=== PATIENT | female | born 1955 | race Caucasian/White ===

== ENCOUNTER 2020-01-23 16:42 | Emergency (ER) | payer MEDICAID ==
[~2020-01-23] VITALS: Ht 170.2 cm; Wt 86.4 kg
[~2020-01-23 16:42] MED LIST: ALPR-624 PO; METH-603 PO; OXYC-658 PO; PHEN-716 PO; PHEN-786 PO; PSEU120T84 PO; ZOLP-183 PO
[2020-01-23] MEDS ORDERED: ketorolac tromethamine 15mg/ml inj. IV ONE (16:55)
[2020-01-23] MEDS ORDERED: LORazepam 2 mg/ml vial IV ONE (16:55)
[2020-01-23 17:15] LABS: BASOPHILS % (AUTO) 0.4 % (0-1); EOSINOPHILS % (AUTO) 0.2 % (0-6); HEMATOCRIT 41.9 % (35.0-45.0); HEMOGLOBIN 14.1 g/dl (12.0-16.0); LYMPHOCYTES # (AUTO) 1.7 X10'3 (1.1-4.8); MEAN CORPUSCULAR HEMOGLOBIN 28.6 PG (27.0-31.0); MEAN CORPUSCULAR HGB CONC 33.6 g/dL (33.0-36.5); MEAN CORPUSCULAR VOLUME 85.4 FL (78-98); MEAN PLATELET VOLUME 7.4 FL (7.4-10.4); MONOCYTES # (AUTO) 0.4 X10'3 (0-0.9); NEUTROPHILS % (AUTO) 76.4 % (42-75); PLATELET COUNT 229 X10'3 (140-440); RED CELL DISTRIBUTION WIDTH 13.9 % (11.5-14.5); WHITE BLOOD COUNT 9.1 X10'3 (4.5-11.0)
[2020-01-23 17:31] LABS: ALANINE AMINOTRANSFERASE 23 U/L (12-78); ALBUMIN 4.3 G/DL (3.4-5.0); ALBUMIN/GLOBULIN RATIO 1.2 (1.1-1.5); ALKALINE PHOSPHATASE 68 IU/L (46-116); ANION GAP 8 (8-16); ASPARTATE AMINO TRANSFERASE 18 U/L (10-37); BILIRUBIN,TOTAL 0.6 MG/DL (0.1-1.0); BLOOD UREA NITROGEN 14 MG/DL (7-18); BUN/CREATININE RATIO 14.3 (6.6-38.0); CALCIUM 9.3 MG/DL (8.5-10.1); CHLORIDE 104 MMOL/L (99-107); CREATININE 0.98 MG/DL (0.40-0.90); GLUCOSE 111 MG/DL (70-104); POTASSIUM 4.1 MMOL/L (3.5-5.1); SODIUM 140 MMOL/L (135-145); TOTAL CARBON DIOXIDE 28.2 MMOL/L (24-32); TOTAL PROTEIN 7.8 G/DL (6.4-8.2); eGFR 57 ML/MIN
[2020-01-23 17:51] LABS: CLARITY,URINE CLEAR (Clear); COLOR,URINE YELLOW (Yellow); GLUCOSE, URINE NEGATIVE (Neg); KETONES,URINE TRACE mg/dl (Neg); LEUKOCYTE ESTERASE ,URINE NEGATIVE (Neg); NITRITES, URINE NEGATIVE (Neg); OCCULT BLOOD,URINE TRACE-INTACT (Neg); PH,URINE 5.5 (4.8-8.0); PROTEIN,URINE TRACE mg/dl (Neg); UROBILINOGEN,URINE 0.2 E.U/dL (0.2-1.0)
[2020-01-23 17:55] LABS: UA COLLECTION TYPE NON-SPECIFIED
[2020-01-23 17:56] LABS: BACTERIA,URINE NONE SEEN /HPF (Neg); MUCUS STRANDS FEW /LPF (Neg); RBC,URINE NONE SEEN /HPF (0-2); SQUAMOUS EPITHELIAL CELL,UR MODERATE /LPF (FEW); WBC,URINE 0-4 /HPF (0-4)
[2020-01-23] MEDS ORDERED: normal saline 1000ml 1,000 ML IV ONE (18:55)
[2020-01-23] MEDS ORDERED: LORazepam 1 MG tablet PO ONE (18:55)
[2020-01-23 19:52] VITALS: BP 150/84
== END 2020-01-23 19:54 | disposition home or self-care (01) ==
LOC: ER 16:43
DX: M54.31 Sciatica, right side (principal); M21.371 Foot drop, right foot; R20.2 Paresthesia of skin; M19.90 Unspecified osteoarthritis, unspecified site; G89.29 Other chronic pain; F41.9 Anxiety disorder, unspecified; Z87.440 Personal history of urinary (tract) infections; Z90.89 Acquired absence of other organs; Z90.710 Acquired absence of both cervix and uterus; Z98.890 Other specified postprocedural states; Z79.899 Other long term (current) drug therapy
CPT/HCPCS: 36415; 80053; 81001; 85025; 96374; 96375; 99285; J1885; J2060; J7030

== ENCOUNTER 2024-12-29 09:54 | Emergency (ER) | payer BC, MEDICAID ==
[~2024-12-29] VITALS: Ht 170.2 cm; Wt 86.5 kg
[2024-12-29 09:57] VITALS: BP 141/94; PULSE 97; RESP 18; TEMP 97.8; O2SAT 96
[2024-12-29] MEDS ORDERED: ONDA-243 PO (10:47)
[2024-12-29] MEDS ORDERED: DICY20TA17 PO (10:47)
[2024-12-29] MEDS: ondansetron 4mg rapidly disintigrating tab PO ONE (11:15)
[2024-12-29] MEDS: dicyclomine 10 MG capsule PO ONE (11:15)
== END 2024-12-29 11:20 | disposition home or self-care (01) ==
LOC: ER 09:54
DX: K29.70 Gastritis, unspecified, without bleeding (principal); T50.905A Adverse effect of unspecified drugs, medicaments and biological substances, initial encounter; M19.90 Unspecified osteoarthritis, unspecified site; F41.9 Anxiety disorder, unspecified; Z90.49 Acquired absence of other specified parts of digestive tract; Z90.710 Acquired absence of both cervix and uterus
CPT/HCPCS: 99283

== ENCOUNTER 2025-03-05 08:48 | Emergency (ER) | payer BC, MEDICAID ==
[~2025-03-05] VITALS: Ht 170.2 cm; Wt 87.6 kg
[~2025-03-05 08:48] MED LIST changes: +DICY20TA17 PO; +ONDA-243 PO
[2025-03-05 08:55] VITALS: BP 146/80; PULSE 77; RESP 18; O2SAT 96
--- NOTE | 2025-03-05 09:29 | Physician Documentation ---
History of Present Illness ~ Chief Complaint: Finger pain Stated Complaint: FINGER PAIN Time Seen by MD: 09:01 Primary Medical Doctor: [facility] HPI This 69-year-old female presents with pain and localized swelling to lateral aspect of her left 3rd finger, patient describes the pain as burning though manageable with mnom-bhz-hlbpjxb pain medications. Tetanus within 5 years: No Medication Reconciliation Allergies: Coded Allergies: No Known Allergies (Unverified , 12/29/24) Scheduled Alprazolam* (Xanax*), 2 MG PO HS, (Reported) Dicyclomine HCl (Dicyclomine HCl), 1 TAB PO Q12H Methadone Hcl* (Dolophine*), 20 MG PO BID, (Reported) Phenazopyridine Hcl (Pyridium tablet), 200 MG PO TID, (Reported) Phenazopyridine Hcl (Pyridium tablet), 2 TAB PO TID Pseudoephedrine Hcl (Pseudoephedrine), 1 TABLET PO BID Zolpidem Tartrate (Ambien), 10 MG PO HS, (Reported) Scheduled PRN ONDANSETRON ODT 4mg tablet (Ondansetron Odt), 1 TAB PO Q6H PRN PRN for nausea/vomiting Oxycodone Hcl IR* (Oxycodone IR*), 1 TAB PO Q4H PRN for breakthrough pain, (Reported) Phenazopyridine HCl (Pyridium), 1 TAB PO Q8H PRN for pain Past Medical History Past Medical History: UTI, Arthritis, Chronic Pain, Anxiety Past Surgical History: appendectomy, , hysterectomy, orthopedic surgeries, tonsillectomy, other Other Past Surgical History: ovarian cystectomy Alcohol Use: None Drug Use: none Lives with: Family Lives In: Home Review of Systems ROS Finger pain as stated above in the HPI, otherwise all systems are reviewed and negative. Physical Exam Vital Signs: Temperature: 97.9, Source: Temporal, Heart Rate: 77, Respiratory Rate: 18, BP: 146/80, Pulse Oximetry: 96, Weight: 87.600 Oxygen Flow Rate: 0 Physical Exam VITALS: Reviewed and as above. GENERAL: Alert, nontoxic appearing, no apparent distress. RESPIRATORY: No increased work of breathing, no respiratory distress, speaking in full clear sentences CV: Brisk capillary refill to left 3rd finger MUSCULOSKELETAL: Range of motion intact in bilateral hands SKIN: Two flesh-colored papules to lateral aspect of left 3rd finger, minimally tender to palpation Progress Results/Orders Results/Orders Vital Signs 03/05/25 03/05/25 08:55 09:34 Temp 97.9 97.9 Pulse 77 Resp 18 B/P (MAP) 146/80 Pulse Ox 96 O2 Flow Rate 0 EKG/XRAY/CT/US/VASC/MRI Bone/Soft Tissue X-Ray (Ext.) : Additional Comment DI FINGER(S), INDICATION: Finger Pain TECHNICAL DATA: Frontal view of the left hand and lateral and oblique views of the left thumb were obtained. COMPARISON: None FINDINGS: 2nd through 5th distal interphalangeal joint space narrowing with central erosions resulting in Gull wing figure aeration suggestive of erosive osteoarthritis. No acute fracture. No dislocation. There is narrowing of the 1st carpometacarpal joint space. Soft tissue swelling in the 3rd digit. IMPRESSION: 1. No acute fracture or dislocation. 2. Features of erosive osteoarthritis. 3. Soft tissue swelling of the 3rd digit. Electronically Signed by:VICENTA CORBIN MD Date & Time: 03/05/25944 Dictated by: VICENTA CORBIN MD Dictation date and time: 03/05/25944 I have reviewed and agree with the radiology report. I have reviewed and interpreted the imaging as: No Fracture or dislocation Medical Decision Making Findings This 69-year-old female presented with pain and two areas of localized swelling to the lateral aspect of left 3rd finger, physical exam most consistent with herpetic yun. It is reassuring finger is neurovascularly intact and range of motion intact, x-ray of the finger ordered by nursing staff prior to my exam an x-ray did not demonstrate evidence of fracture or dislocation. Patient is otherwise well-appearing with no other symptoms or concerns and physical exam was otherwise benign, patient is appropriate for outpatient follow up. Patient provided home care instructions and return to care precautions which he verbalized understanding. Finger Diff Dx:Considerations: Include: Abrasion, Cellulitis, Fracture, Hematoma, Neurovascular injury, Subungual hematoma Departure Time of Disposition: 09:29 Disposition: 01 HOME / SELF CARE / HOMELESS Impression: Primary Impression: Finger pain Qualified Codes: M79.645 - Pain in left finger(s) Condition: Improved Discharge Instructions: Herpetic Yun Additional Instructions: This appears to be a condition called herpetic yun which is a viral infection of the skin of the finger, is commonly cause by a herpes virus, this is a self-resolving condition that will take 2-4 weeks to go away, you may use ibuprofen and or Tylenol for pain as directed by helx-fqh-pbsyaxa packaging. Please follow up with your primary care provider in the next few days. Please return to the emergency department for any new or worsening concerning symptoms. Referrals: NO PRIMARY CARE PROVIDER (PCP) Education Educated: Patient Educated regarding: diagnosis, treatment, prognosis, need for follow up Signature Scribe Signature: No scribe Attestation: The note accurately reflects work and decisions made by me.KASEY Cote 03/05/25 20:15 KIM LOWERY Mar 05, 2025 09:29
[2025-03-05 09:34] VITALS: TEMP 97.9
--- NOTE | 2025-03-05 09:47 | RADIOLOGY REPORT ---
DI FINGER(S), INDICATION: Finger Pain TECHNICAL DATA: Frontal view of the left hand and lateral and oblique views of the left thumb were ob tained. COMPARISON: None FINDINGS: 2nd through 5th distal interphalangeal joint space narrowing with central erosions resulting in Gull wing figure aeration suggestive of erosive osteoarthritis. No acute fracture. No dislocation. There is narrowing of the 1st carpometacarpal joint space. Soft tissue swelling in the 3rd digit. IMPRESSION: 1. No acute fracture or dislocation. 2. Features of erosive osteoarthritis. 3. Soft tissue swelling of the 3rd digit.
== END 2025-03-05 09:36 | disposition home or self-care (01) ==
LOC: ER 08:48
DX: M79.645 Pain in left finger(s) (principal); R22.9 Localized swelling, mass and lump, unspecified; F41.9 Anxiety disorder, unspecified; M19.90 Unspecified osteoarthritis, unspecified site; Z90.49 Acquired absence of other specified parts of digestive tract; Z90.710 Acquired absence of both cervix and uterus
CPT/HCPCS: 73140; 99283

== ENCOUNTER 2025-04-02 11:15 | Emergency (ER) | payer BC, MEDICAID ==
[~2025-04-02] VITALS: Ht 170.2 cm; Wt 83.2 kg
--- NOTE | 2025-04-02 11:28 | ELECTROCARDIOGRAPH REPORT ---
[facility], [place] Test Date: 2025-04-02 Test Time: 11:27:00 Pat Name: FELIPE RUSH Department: EMERGENCY ROOM Room: Gender: F Nurse Educator: LALITA : 1955 Requested By: ANNA NAVARRO Order Number: [id number] Reading MD: Measurements Intervals [place] Rate: 95 P: 51 RI: 163 QRS: -12 QRSD: 80 T: 51 QT: 369 QTc: 464 Interpretive Statements Sinus rhythm Ventricular premature complex Abnormal R-wave progression, early transition Please click the below link to view image of tracing.
[2025-04-02 11:44] LABS: MEAN PLATELET VOLUME 7.9 FL (7.4-10.4); RED CELL DISTRIBUTION WIDTH 14.2 % (11.5-14.5)
[2025-04-02 11:59] LABS: APTT 26 SECONDS (22-32); INR 1.1 INR
[2025-04-02 12:10] LABS: CREATININE 0.72 MG/DL (0.40-0.90); TOTAL CARBON DIOXIDE 26.7 MMOL/L (24-32); eCRCL 73 ML/MIN; eGFR 81 ML/MIN
[2025-04-02 12:22] LABS: PRO BRAIN NATRIURETIC PEPTIDE 137 PG/ML (0-125)
[2025-04-02 12:45] VITALS: TEMP 98.3
[2025-04-02] MEDS: fentaNYL/PF 50MCG/1 ML 2ML syringe IV ONE ×2 (12:48→14:21)
--- NOTE | 2025-04-02 13:11 | Physician Documentation ---
History of Present Illness ~ Chief Complaint: Shoulder pain Stated Complaint: PAIN Time Seen by MD: 11:19 Primary Medical Doctor: [facility] HPI This is a 69-year-old female who presented for evaluation of sudden onset unprovoked left upper shoulder pain radiating into her left arm. No obvious trigger, trauma provocation. The particular palliating or aggravating factors. Did not attempt to treat it. Never experienced this in the past. As this is pain is 10/10. Denies any chest pain, denies any difficulty breathing. No concern for tobacco, alcohol or illicit substances use Tetanus within 5 years?: No Medication Reconciliation Allergies: Coded Allergies: No Known Allergies (Unverified , 12/29/24) Scheduled Alprazolam* (Xanax*), 2 MG PO HS, (Reported) Dicyclomine HCl (Dicyclomine HCl), 1 TAB PO Q12H Methadone Hcl* (Dolophine*), 20 MG PO BID, (Reported) Phenazopyridine Hcl (Pyridium tablet), 200 MG PO TID, (Reported) Phenazopyridine Hcl (Pyridium tablet), 2 TAB PO TID Pseudoephedrine Hcl (Pseudoephedrine), 1 TABLET PO BID Zolpidem Tartrate (Ambien), 10 MG PO HS, (Reported) Scheduled PRN ONDANSETRON ODT 4mg tablet (Ondansetron Odt), 1 TAB PO Q6H PRN PRN for nausea/vomiting Oxycodone Hcl IR* (Oxycodone IR*), 1 TAB PO Q4H PRN for breakthrough pain, (Reported) Phenazopyridine HCl (Pyridium), 1 TAB PO Q8H PRN for pain Past Medical History Past Medical History: UTI, Arthritis, Chronic Pain, Anxiety Past Surgical History: appendectomy, , hysterectomy, orthopedic surgeries, tonsillectomy, other Other Past Surgical History: ovarian cystectomy Alcohol Use: None Drug Use: none Lives with: Family Lives In: Home Review of Systems ROS 10 point review of systems was performed and unless noted above in HPI is negative for acute process/complaint. Physical Exam Vital Signs: Temperature: 98.3, Source: Oral, Heart Rate: 79, Respiratory Rate: 16, BP: 128/78, Pulse Oximetry: 96, Weight: 83.180 Oxygen Flow Rate: 0 Physical Exam GENERAL: Awake, alert, oriented, GCS 15, no apparent distress, non-toxic appeari ng, answers questions, follows commands appropriately. HEENT: Atraumatic, normocephalic, pupils equal, extraocular muscles intact, sclerae anicteric, mucus membranes moist, oropharynx is clear, no stridor. NECK: supple, full active range of motion, trachea midline, no thyromegaly, no lymphadenopathy, no JVD. CARDIOVASCULAR: regular rate/rhythm, no murmurs/gallops/rubs, Pulses are 2+ in all extremities and symmetric. Capillary refill less than 2 seconds. PULMONARY: Nonlabored, good air movement ,no respiratory distress, speaking in full sentences, clear to auscultation bilaterally, no wheezing, no ronchi, no rales, no accessory muscle use. GASTROINTESTINAL: Soft, non-tender, non-distended, normal active bowel sounds, no organomegaly, no pulsatile masses, no CVA tenderness. NEUROLOGIC: Lucid with normal mental status. Normal facial symmetry. Moves all extremities symmetrically and with purpose. No truncal ataxia. Speech is fluid without evidence of dysarthria or aphasia, no focal deficits appreciated. MUSCULOSKELETAL: There is full range of motion of all extremities. There is no joint pain or joint swelling or joint erythema. There is no muscle pain or tenderness or swelling. EXTREMITIES: warm, well-perfused, no cyanosis, no clubbing, no edema, no acute deformities. Skin: warm, dry, no rashes or lesions, no jaundice, no petechiae orpurpura. No ecchymosis. PSYCHIATRIC: Normal affect, normal insight, normal concentration. Focused exam: [] Full range of motion of left shoulder. No appreciable muscle spasm. No cervical tenderness to palpation or step-off Progress Results/Orders Results/Orders Orders - EFREM NAVARRO DO Chest,Single View (04/02/25 11:19) Ct Cervical Spine (04/02/25 13:23) Shoulder, Complete (Min 2 Vws) (04/02/25 11:19) Completed Orders - EFREM NAVARRO DO Electrocardiogram (04/02/25 11:19) Cbc/Diff (04/02/25 11:19) D-Dimer (04/02/25 11:19) Pt Inr (04/02/25 11:19) PTT (04/02/25 11:19) Chest,Single View (04/02/25 11:19) PBNP (04/02/25 11:19) MG (04/02/25 11:19) CMP (04/02/25 11:19) Hs Troponin I W Calculations (04/02/25 11:19) Hs Troponin I W Calculations (04/02/25 13:19) Ct Cervical Spine (04/02/25 13:23) Fentanyl/Pf (Fentanyl 0.05 Mg/Ml Syringe (04/02/25 11:20) Shoulder, Complete (Min 2 Vws) (04/02/25 11:19) Cyclobenzaprine Tablet (Flexeril Tablet) (04/02/25 13:35) Ketorolac Trometh 30mg/Ml Vial (Toradol (04/02/25 13:35) Fentanyl/Pf (Fentanyl 0.05 Mg/Ml Syringe (04/02/25 13:35) Cyclobenzaprine Tablet (Flexeril Tablet) (04/02/25 14:00) Medications Received in ER Medications (Trade) Dose Ordered Sig/Javi Route PRN Reason Start Time Stop Time Status Last Admin Dose Admin (fentaNYL 0.05 MG/ML syringe) 50 mcg ONCE ONCE IV 04/02/25 11:20 04/02/25 11:24 DC 04/02/25 12:48 50 MCG (Toradol inj. 30mg/ml) 30 mg ONCE ONCE IV 04/02/25 13:35 04/02/25 13:57 DC 04/02/25 14:34 30 MG (Flexeril tablet) 5 mg ONCE ONCE PO 04/02/25 14:00 04/02/25 14:01 DC 04/02/25 14:35 5 MG Vital Signs 04/02/25 04/02/25 04/02/25 04/02/25 11:51 12:45 12:48 13:00 Temp 98.3 98.3 Pulse 96 79 79 Resp 18 18 16 18 B/P (MAP) 142/86 128/78 (95) 128/78 (95) Pulse Ox 97 96 98 O2 Flow Rate 0 0 0 04/02/25 04/02/25 04/02/25 13:39 14:34 14:37 Pulse 80 Resp 17 19 B/P (MAP) 172/84 (113) Pulse Ox 95 O2 Flow Rate 0 Laboratory Tests Test 04/02/25 11:30 04/02/25 13:30 White Blood Count 6.8 Red Blood Count 4.61 Hemoglobin 12.9 Hematocrit 38.1 Mean Corpuscular Volume 82.5 Mean Corpuscular Hemoglobin 27.9 Mean Corpuscular Hemoglobin Concent 33.8 Red Cell Distribution Width 14.2 Platelet Count 184 Mean Platelet Volume 7.9 Neutrophils (%) (Auto) 85.7 H Lymphocytes (%) (Auto) 12.0 L Monocytes (%) (Auto) 1.9 L Eosinophils (%) (Auto) 0 Basophils (%) (Auto) 0.4 Neutrophils # (Auto) 5.9 Lymphocytes # (Auto) 0.8 L Monocytes # (Auto) 0.1 Eosinophils # (Auto) 0.0 Basophils # (Auto) 0.0 CBC Comment Prothrombin Time 10.9 INR International Normalized Ratio 1.1 Activated Partial Thromboplast Time 26 D-Dimer 0.56 H D-Dimer Comment Coagulation Comments Sodium Level 136 Potassium Level 3.9 Chloride Level 102 Carbon Dioxide Level 26.7 Anion Gap 7 L Blood Urea Nitrogen 10 Creatinine 0.72 Estimated GFR/1.73 m2 81 BUN/Creatinine Ratio 13.9 Glucose Level 116 H Calcium Level 8.6 Magnesium Level 2.0 Total Bilirubin 0.6 Aspartate Amino Transf (AST/SGOT) 19 Alanine Aminotransferase (ALT/SGPT) 25 Alkaline Phosphatase 51 Troponin I High Sensitivity 6 8 Pro-B-Type Natriuretic Peptide 137 H Total Protein 7.3 Albumin 3.6 Globulin 3.7 Albumin/Globulin Ratio 1.0 L Chemistry Comments Troponin I High Sens Percent Delta 33 Troponin I Hi Sens Absolute Change 2 Medical Decision Making Findings Facility Status: ED Holds, [facility] process The plan was discussed with the patient, who demonstrates clear understanding of the plan and is in agreement with the plan unless otherwise noted in the chart. All questions have been answered, all concerns were addressed unless otherwise documented. I was available throughout their ED stay for frequent reassessment and questions. Differential Diagnoses (considered and possible or likely): [Musculoskeletal pain, arthritis, muscle spasm, cervical radiculopathy, less likely ACS, pneumonia, less likely PE less likely pneumothorax] ??Differential Diagnoses (considered and unlikely, not requiring evaluation currently): [No evidence of trauma] [facility] Data Please see HPI for the following: Independent Historians and external Records Review. Historian: [Patient] Independent Historians: ?[Per EMS] Medication Management: [Reviewed medication list] Social History and determinants: [Reviewed] Please see the body of the note for the following: Any independent interpretations of ECG, imaging studies. All vitals signs/haemodynamics, ordered tests were independently reviewed and interpreted by myself. Nursing triage complaint and vitals reviewed, additional nursing notes were reviewed as available and I agree unless otherwise noted or documented in contradiction in the chart Vital Signs: Independently reviewed Labs: Independently interpreted Imaging: Independently interpreted Old Medical Records: Independently reviewed, see HPI for relevant summary and information Pulse Oximetry: [98%] interpreted as [normal on room air] by me [Materials And Processes Manager: [Regular Rate, Regular rhythm, no ectopy, NSR] reviewed and interpreted by me] Additionally notably showing: [Hemodynamics reviewed. The patient isn't febrile, not tachycardic, no evidence of hypotension respiratory distress. Laboratory studies shows no leukocytosis. 86% neutrophilic predominance noted. Coagulation mental shows age adjusted normal D-dimer. Normal coagulation panel. Chemistry is unremarkable. BNP is minimally elevated. Imaging reviewed. Chest x-ray shows no acute disease. Shoulder x-ray shows arthritis, no evidence of acute fracture or dislocation. CT C-spine shows advanced cervical DJD. ] Tests considered but not ordered include: [CT angiography has been considerably but dissection is highly unlikely, as the pain is not ripping, tearing, there is no focal deficits, no syncope, it is not migratory, and it is located in her left shoulder.] Social Determinants of Health Impact: Patient was evaluated in [facility], [facility] [place] to healthcare due to below par ratio of patient to medical providers. [] Comorbid Conditions Impacting Present Evaluation and Care/Treatment: [Multiple, see list] Management Discussions with other Healthcare Providers: [] Treatment and Disposition Medication Management (Given or considered): [Pain management]. See EMR for details Consideration for Hospitalization/Escalation/Deescalation of Care: Admission for observation has been considered, [however the patient is able to tolerate p.o., their symptoms are controlled, they are able to rely on oral medications, and their chief complaint/diagnosis can be managed on outpatient basis.] ?ED Course:?[After receiving pain management the patient is sleeping comfortably. There is no reason were emergent admission to the hospital.] ?Shared decision making:?[Patient is hemodynamically stable for discharge home with follow with their primary care provider. [ ] Specific and cautious return precautions provided and discussed with full understanding. Any incidental findings were also discussed and follow up recommendations given. [] All questions answered. Patient/family were able to verbalize back return precaution s. Patient/family agree to plan. Copies of imaging and laboratory studies were provided.] Code status:?FULL Please see the full Electronic Medical Record for full details of nursing documentation, medications list, other records of complete past medical history and conditions, vital signs, laboratory studies, and any radiologic study interpretations by radiologists. Portions of this note were completed using [employer] dictation software and as a result there may exist minor errors in spelling. I have reviewed elements of past family and social history and agree as included in note. Departure Disposition: HOME / SELF CARE / HOMELESS Impression: Primary Impression: Left shoulder pain Condition: Improved Discharge Instructions: Shoulder Pain Additional Instructions: There is no clear explanation for your pain today. Treat your pain with a [id number]-btzubqp medications. Return if his symptoms get worse, if you develop chest pain, shortness a breath, if the pain becomes ripping, tearing, if it moves, if you develop weakness in an arm or leg with the whole side. Referrals: NO PRIMARY CARE PROVIDER (PCP) Signature Scribe Signature: No scribe Attestation: This note accurately reflects clinical decisions, work performed by myself, Efrem Navarro, EFREM EDWARDS DO Apr 02, 2025 13:11
--- NOTE | 2025-04-02 13:25 | RADIOLOGY REPORT ---
EXAM: DI CHEST,SINGLE VIEW HISTORY: Left-sided chest pain - EMT GURNEY [id number] COMPARISON: None TECHNIQUE: Portable upright AP view of the chest was performed. FINDINGS: No pneumothorax, consolidative infiltrates, or pulmonary edema. The heart is not enlarged. There is t horacic degenerative disc disease and dextroscoliosis. IMPRESSION: No acute intrathoracic process.
--- NOTE | 2025-04-02 13:35 | RADIOLOGY REPORT ---
Indication: Left-sided shoulder pain Technique: DI SHOULDER, COMPLETE (MIN 2 VWS)SHOULDERCM Comparison: None FINDINGS/IMPRESSION: No definitive radiographic evidence for acute fracture or dislocation. Ioat-nz-zfslopjc left AC join t arthrosis. AI reports irregularity in the region of the humeral head/ glenoid region. No identifiable fracture seen. If clinical concern for fracture persists recommend obtaining CT left shoulder
--- NOTE | 2025-04-02 13:40 | RADIOLOGY REPORT ---
Indication: Left-sided neck pain Technique: CT axial images of the cervical spine are obtained without contrast. Coronal and sagittal reformats were obtained. Radiation Dose Information: CTDI volume is 19.6 mGy. Dose-length product is 390 mGy*cm Comparison: None FINDINGS: The cervical vertebral body heights are maintained. Straightening of normal cervical spine curvature . There is moderate to advanced disc space narrowing. No prevertebral edema. Facet articulations demo nstrate moderate facet hypertrophic changes. . The atlantooccipital, atlantoaxial articulations are i ntact. C2-3: Htil-wm-zajzbrss left neural foraminal stenosis. C3-4: Moderate bilateral neural foraminal stenosis, efzc-riyaemv-yzpx-right. C4-5: Jblf-ub-pxwmaqie bilateral neural foraminal stenosis. C5-6: Moderate to advanced bilateral neural foraminal stenosis. C6-7: Moderate to advanced bilateral neural foraminal stenosis. C7-T1: Zvhi-js-ahpobcfm right neural foraminal stenosis. IMPRESSION: Moderate to advanced cervical degenerative disc disease.
[2025-04-02] MEDS: ketorolac trometh 30MG/ML vial 30 MG/ML VIAL IV ONE (14:34)
[2025-04-02 16:07] VITALS: BP 150/75; PULSE 78; RESP 16; O2SAT 97
== END 2025-04-02 16:09 | disposition home or self-care (01) ==
LOC: ER 11:15
DX: M25.512 Pain in left shoulder (principal); R06.02 Shortness of breath; Z79.899 Other long term (current) drug therapy
CPT/HCPCS: 36415; 71045; 72125; 73030; 80053; 83735; 83880; 84484; 85025; 85379; 85610; 85730; 93005; 96374; 96375; 99285; J1885; J3010